=== PATIENT | female | born 1935 | race Caucasian/White ===

== ENCOUNTER → 2017-02-08 | Outpatient (CLI) | payer MEDICARE, OTHER ==
[~2017-02-08] MED LIST: AMBIEN PO; ASA PO; ASPIRIN EC81 M1 PO; ASTELIN137 MCG INH; ASTEPRO205.5 MCG/; BROMFED DM COU118 ML; CARAFATE1 GM PO; CENTRUM PO; CRESTOR10 MG PO; DOK100 MG PO; HYDROCODONE-CHLO5 ML PO; LASIX PO; LEVSIN PO; LISINOPRIL10 MG PO; LIVALO2 MG PO; LOPRESSOR PO; LOVAZA1 G PO; MELATONIN3 MG PO; MULTI-DAY VITAM1 TAB PO; NASONEX17 GM; NIACIN PO; NIACIN500 M2 PO; POTASSIUM LIQUID; POTASSIUM LIQUID PO; PROTONIX PO; SINGULAIR PO; SYNTHROID PO; SYNTHROID0.05 MG PO; TEMAZEPAM PO; TUSSIN15 MG/5 M1 PO; VAGIFEM10 MCG; VAGIFEM10 MCG VG; VIT B-12 PO; VIT B-12 SL; VITAMIN B-121000 MCG PO; VITAMIN D PO; VITAMIN D1000 UNIT PO; VITAMIN D31000 UNIT PO; ZYRTEC PO; ZYRTEC10 M2 PO
--- NOTE | ~2017-02-08 | CT69 ---
[facility] A Service of [facility] RADIOLOGY TEXT RESULTS PATIENT: MISA PERALTA LOCATION: [facility] : 35 UNIT #: [id number] AGE: [address]: Kishan Sharma MD SEX: F ORDER DR: [id number] [facility] [address] [place], [place] [address] [id number] O MR#: [id number] Acc #: [id number] NAME: MISA PERALTA. : 1935 SEX: F STUDY DATE/TIME: 02/08/2017 17:14 UNIT: [facility] ROOM: STUDY DESCRIPTION: CT Head W Contrast Attending Physician: Kishan Sharma M.D. Referring Physician: Kishan Sharma M.D. Ordering Physician: Kishan Sharma M.D. Primary Care Physician: Kishan Sharma M.D. MEDICAL IMAGING REPORT This report is preliminary unless electronic signature is present EXAM CT of the head INDICATION Headache. Prior brain tumor removal in 2011. Right ear, jaw and neck pain. Two week duration. TECHNIQUE CT of the head utilizing 100 mL Isovue-[address] examination was performed with one or more of the following radiation dose reduction techniques: automatic exposure control, adjustment of mA and/or kV according to patient size, and iterative reconstruction. COMPARISON MRI of the brain dated 07/19/2016. 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 This measures 1.7 x 0.7 cm on today's study compared to 2.3 x 0.9 cm on the prior. There is no associated mass effect. No new areas of enhancement. 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 Torres-white matter differentiation is normal. Ventricles and basilar cisterns are normal in size and configuration. No acute osseous abnormalities. There is bone graft material in the region of the patient's prior resection. There is no discrete osseous healing. IMPRESSION 1. Small residual soft tissue mass consistent with the patient's known STS. [facility] A Service of [facility] RADIOLOGY TEXT RESULTS PATIENT: MISA PERALTA LOCATION: [facility] : 35 UNIT #: [id number] AGE: [address]: Kishan Sharma MD SEX: F ORDER DR: history of meningioma. This is unchanged from the MRI of 07/19/2016. 2. No new findings. Dictated by... Barney De La Rosa M.D. THIS IS AN ELECTRONICALLY VERIFIED REPORT Barney De La Rosa M.D. at 02/11/2017 3:47 PM KHOI/erik TD: 02/11/2017 12:32 JOB #: [id number] MEDICAL IMAGING REPORT Page 1 of 1 COPY
[2017-02-08 16:21] LABS: POC - CREATININE 0.81 mg/dL (0.44-1.03); POC - GFR >60.0 mL/min (>60)
== END | disposition home or self-care (01) ==
LOC: CCAT 15:28
PROVIDERS: Family Medicine
DX: R51 Headache (principal); G93.89 Other specified disorders of brain
CPT/HCPCS: 70460; 82565; Q9967

== ENCOUNTER → 2017-02-25 | Outpatient (CLI) | payer MEDICARE, OTHER ==
--- NOTE | ~2017-02-25 | MY29 ---
[facility] A Service of [facility] RADIOLOGY TEXT RESULTS PATIENT: MISA PERALTA LOCATION: [facility] : 35 UNIT #: [id number] AGE: [address]: Eric Oakes MD SEX: F ORDER DR: [id number] [facility] [address] [place], [place] [address] [id number] O MR#: [id number] Acc #: [id number] NAME: MISA PERALTA : 1935 SEX: F STUDY DATE/TIME: 02/25/2017 12:20 UNIT: [facility] ROOM: STUDY DESCRIPTION: MY [facility] SCREENING W/ CAD BILAT Attending Physician: Eric Oakes Jr., M.D. Referring Physician: Eric Oakes Jr., M.D. Ordering Physician: Eric Oakes Jr., M.D. Primary Care Physician: Kishan Sharma M.D. MEDICAL IMAGING REPORT This report is preliminary unless electronic signature is present EXAM Screening mammogram, 02/25/2017 INDICATION 82-year-old with no personal or family history of breast cancer. No current complaints. FINDINGS Routine digital screening views of both breasts were obtained. Study is reviewed with an FDA-approved CAD device. Comparison made with 02/23/2016, 02/21/2015. Breast parenchyma shows scattered fibroglandular densities. No new masses or suspicious microcalcifications are seen. Benign calcifications in both breasts are stable. IMPRESSION Benign mammogram. Routine screening in 1 year is recommended. Patients over the age of 40 are entered into a reminder system with target due date for the next mammogram. A result letter will also be sent to the patient. BIRADS: 2 Benign finding Dictated by... Juarez Carter Jr., M.D. THIS IS AN ELECTRONICALLY VERIFIED REPORT Juarez Carter Jr., M.D. at 02/26/2017 7:20 AM BANDARK/geri [facility] A Service of [facility] RADIOLOGY TEXT RESULTS PATIENT: MISA PERALTA LOCATION: [facility] : 35 UNIT #: [id number] AGE: [address]: Eric Oakes MD SEX: F ORDER DR: TD: 02/25/2017 22:52 JOB #: [id number] MEDICAL IMAGING REPORT Page 1 of 1 COPY
== END | disposition home or self-care (01) ==
LOC: CWCC 11:49
DX: Z12.31 Encounter for screening mammogram for malignant neoplasm of breast (principal)
CPT/HCPCS: G0202